=== PATIENT | female | born 1990 | race Caucasian/White ===

== ENCOUNTER 2017-01-17 19:28 | Emergency (ER) | payer MEDICAID ==
[~2017-01-17] VITALS: Ht 162.6 cm; Wt 62.5 kg
[2017-01-17 19:30] VITALS: Ht 162.6 cm; Wt 62.5 kg
[2017-01-17] MEDS ORDERED: METOCLOPRAMIDE 10 MG INJ IV STA (19:58)
[2017-01-17] MEDS ORDERED: SOD CHLORIDE 0.9% 1,000 ML IV STA (19:58)
[2017-01-17] MEDS ORDERED: METOCLOPRAMIDE 10 MG INJ IV ONE (20:00)
[2017-01-17] MEDS ORDERED: DIPHENHYDRAMINE 50 MG INJ IV ONE (20:00)
[2017-01-17 20:08] LABS: URINE BLOOD (Dip) POC Trace-intact (NEGATIVE)
[2017-01-17] MEDS ORDERED: METO10TA92 PO (20:18)
--- NOTE | 2017-01-17 20:25 | ERD ---
ER Documentation Chief Complaint Date/Time DATE: 01/17/17 TIME: 20:19 Chief Complaint 6 weeks ,N/V x 1 week HPI She is a 26-year-old female, approximately 6 weeks , , presents emergency department with nausea and vomiting 1 week. Patient reports 4-5 episodes of nonbloody nonbilious vomiting throughout the day. Patient reports drinking water however she states she has a decreased appetite. Patient states for the last 2 days she has been unable to eat secondary to nausea. Patient denies any fevers, chills, abdominal pain, pelvic pain or vaginal bleeding. Denies any chest pain, shortness of breath or loss of consciousness. Patient has not seen an POWER CRANE OPERATOR yet. Patient states her last menstrual period was approximately 2 months ago however she does not recall the exact timing. ROS All systems reviewed and are negative except as per history of present illness. Medications Home Meds Active Scripts Metoclopramide* (Reglan*) 10 Mg Tablet, 10 MG PO Q6 Y for NAUSEA AND/OR VOMITING , #12 TAB Prov:IVAN LION PA-C 01/17/17 Allergies Allergies: Coded Allergies: No Known Allergy (Unverified , 01/17/17) PMhx/Soc History of Surgery: No Anesthesia Reaction: No Hx Neurological Disorder: No Hx Respiratory Disorders: No Hx Cardiac Disorders: No Hx Psychiatric Problems: No Hx Miscellaneous Medical Probl: No Hx Alcohol Use: No Hx Substance Use: No Hx Tobacco Use: No Physical Exam Vitals Vital Signs Date Time Temp Pulse Resp B/P Pulse Ox O2 Delivery O2 Flow Rate FiO2 01/17/17 19:30 97.8 80 20 119/80 99 Physical Exam GENERAL: Well-developed, well-nourished female. Appears in no acute distress. Speaking in full sentences. HEAD: Normocephalic, atraumatic. EYES: Pupils are equally reactive bilaterally. EOMs grossly intact. No conjunctival erythema. ENT: Moist mucous membranes. No uvula deviation. No kissing tonsils. NECK: Supple. No meningismus. Normal range of motion of the neck. LUNG: Clear to auscultation bilaterally. No rhonchi, wheezing, rales or coarse breath sounds. HEART: Regular rate and rhythm. No murmurs, rubs or gallops. ABDOMEN: No scars, ecchymosis or rashes noted. Soft, nontender, and nondistended. Positive bowel sounds in all four quadrants. No rebound tenderness , no guarding. (-) McBurney's point tenderness. No CVA tenderness. BACK: No midline tenderness. EXTREMITIES: Equal pulses bilaterally. No peripheral clubbing, cyanosis or edema. No unilateral leg swelling. NEUROLOGIC: Alert and oriented. Moving all four extremities without any difficulty. Normal speech. Steady gait. SKIN: Normal color. Warm and dry. No rashes or lesions. Result Diagram: 01/17/17200901/17/172009 Results 24 hrs Laboratory Tests Test 01/17/17 20:10 White Blood Count 11.010^3/ul Red Blood Count 4.5110^6/ul Hemoglobin 14.1g/dl Hematocrit 41.0% Mean Corpuscular Volume 90.9fl Mean Corpuscular Hemoglobin 31.3pg Mean Corpuscular Hemoglobin Concent 34.4g/dl Red Cell Distribution Width 11.6% Platelet Count 42020^3/UL Mean Platelet Volume 12.0fl Neutrophils % 77.8% Lymphocytes % 14.5% Monocytes % 6.7% Eosinophils % 0.3% Basophils % 0.2% Nucleated Red Blood Cells % 0.0/100WBC Neutrophils # 8.610^3/ul Lymphocytes # 1.610^3/ul Monocytes # 0.710^3/ul Eosinophils # 0.010^3/ul Basophils # 0.010^3/ul Nucleated Red Blood Cells # 0.010^3/ul Bedside Urine pH (LAB) 6.0 Bedside Urine Protein (LAB) 1+ Bedside Urine Glucose (UA) Negative Bedside Urine Ketones (LAB) 4+ Bedside Urine Blood Trace-intact Bedside Urine Nitrite (LAB) Negative Bedside Urine Leukocyte Esterase (L Negative Sodium Level 137mmol/L Potassium Level 3.4mmol/L Chloride Level 97mmol/L Carbon Dioxide Level 23mmol/L Anion Gap 20 Blood Urea Nitrogen 6mg/dl Creatinine 0.55mg/dl Glucose Level 94mg/dl Calcium Level 10.1mg/dl Total Bilirubin 0.4mg/dl Direct Bilirubin 0.00mg/dl Indirect Bilirubin 0.4mg/dl Aspartate Amino Transf (AST/SGOT) 18IU/L Alanine Aminotransferase (ALT/SGPT) 22IU/L Alkaline Phosphatase 57IU/L Total Protein 8.6g/dl Albumin 5.0g/dl Globulin 3.60g/dl Albumin/Globulin Ratio 1.38 Lipase 76U/L Beta HCG, Quantitative 33897.0mIU/ml Current Medications Medications (Trade) Dose Ordered Sig/Felisha Route PRN Reason Start Time Stop Time Status Last Admin Dose Admin Sodium Chloride (NS) 1,000 ml @ 1,000 mls/hr Q1H STAT IV 01/17/17 19:58 01/17/17 20:57 DC 01/17/17 20:17 Metoclopramide HCl (Reglan) 10 mg ONCE STAT IV 01/17/17 19:58 01/17/17 20:01 DC 01/17/17 20:17 Diphenhydramine HCl (Benadryl) 25 mg ONCE ONCE IV 01/17/17 20:00 01/17/17 20:01 DC 01/17/17 20:17 Metoclopramide HCl (Reglan) 10 mg ONCE ONCE IV 01/17/17 20:00 01/17/17 20:01 DC Procedures/MDM ED COURSE: The patient was stable throughout ED course. I kept the patient and/or family informed of laboratory and diagnostic imaging results throughout the ED course. DIAGNOSTIC IMAGING: Read by radiologist. DIAGNOSTIC IMAGING REPORT Patient: FELY WILDER : 1990 Age: 26 Sex: F MR #: [id number] DOS: 01/17/17 0000 Ordering MD: IVAN LION PA-C Location: [facility]TE Room/Bed: PROCEDURE: US OB. CLINICAL INDICATION: Pain. Vomiting.. TECHNIQUE: Multiple sonographic images of the pelvis were obtained. Transabdominal and transvaginal views of the pelvis are available for review. The images were reviewed on a PACS workstation. COMPARISON: No prior studies are available for comparison. FINDINGS: A single live intrauterine is identified. heart rate is 127 beats per minute. The crown-rump length is 9.4 mm which corresponds to 7 weeks 0 days gestational age by ultrasound criteria. Estimated date of delivery is . A 5.4 mm subchorionic hemorrhage is identified. There is a 1.3 cm right ovarian simple cyst. The ovaries are otherwise unremarkable with vascular flow.. There is no adnexal mass or free fluid. IMPRESSION: 1. Single live intrauterine gestation of approximately 7 weeks 0 days. 2. Small subchorionic hemorrhage. 3. Right ovarian cyst. RPTAT: HMVK .Wei Sanchez MD, Date Time Electronically viewed and signed by .Wei Sanchez MD, MD on 01/17/2017 22:04 .K/ CC: IVAN LION PA-C MEDICATIONS GIVEN: IV fluids, Benadryl, Reglan Patient tolerated medication well with no adverse reactions. MEDICAL DECISION MAKING: Patient is a 26-year-old female who presents presents to the emergency department with nausea and vomiting x 1 week. Vital signs were reviewed. Patient is afebrile. Patient was not hypoxic. Patient was hemodynamically stable. CBC showed no evidence of systemic infection or severe anemia. CMP showed no evidence of electrolyte abnormalities, severe acidosis, alkalosis, renal failure , or liver disease. Lipase showed no evidence of acute pancreatitis[place] [address]. Urine dip is negative for acute infection. Patient was noted to have ketones in her urine likely due to vomiting for the last week. Pelvic ultrasound showed single live intrauterine gestation of approximately 7 weeks 0 days. Small subchorionic hemorrhage noted. Right ovarian cyst noted with normal blood flow. Patient was given IV fluids, Benadryl, Reglan here in the emergency department. Patient reported feeling better after receiving IV fluids. No additional episodes of vomiting were noted throughout ED course. At this time, the patient's presentation is most consistent with associated nausea and vomiting. Low suspicion for hyperemesis gravidarum, gastroenteritis, gallbladder disease, pancreatitis, appendicitis, daily, UTI, pyelonephritis, PUD, HELLP syndrome. Pelvic ultrasound showed intrauterine and subchorionic hemorrhage.. Low suspicion for ectopic , anembryonic , spontaneous , complete , urine torsion. PRESCRIPTION: Reglan DISCHARGE: At this time, patient is stable for discharge and outpatient management. I have instructed the patient to follow-up with his/her primary care physician in 1-2 days. She was provided with referral information for an POWER CRANE OPERATOR. Patient will need to follow-up with an POWER CRANE OPERATOR in the next 1-2 days patient was advised to return emergency department for any severe pain or vaginal bleeding per. I have instructed the patient to promptly return to the ER for any new or worsening symptoms including increased pain, fever, nausea, vomiting, weakness or LOC. The patient and/or family expressed understanding of and agreement with this plan. All questions were answered. Home care instructions were provided. Departure Diagnosis: Primary Impression: Vomiting during Additional Impression: Subchorionic hemorrhage Condition: Stable Patient Instructions: Vomiting (6Y-Adult), , Established, Normal Symptoms Referrals: COMMUNITY CLINICS YOU HAVE RECEIVED A MEDICAL SCREENING EXAM AND THE RESULTS INDICATE THAT YOU DO NOT HAVE A CONDITION THAT REQUIRES URGENT TREATMENT IN THE EMERGENCY DEPARTMENT. FURTHER EVALUATION AND TREATMENT OF YOUR CONDITION CAN WAIT UNTIL YOU ARE SEEN IN YOUR DOCTORS OFFICE WITHIN THE NEXT 1-2 DAYS. IT IS YOUR RESPONSIBILITY TO MAKE AN APPOINTMENT FOR FOLOW-UP CARE. IF YOU HAVE A PRIMARY DOCTOR --you should call your primary doctor and schedule an appointment IF YOU DO NOT HAVE A PRIMARY DOCTOR YOU CAN CALL OUR PHYSICIAN REFERRAL HOTLINE AT IF YOU CAN NOT AFFORD TO SEE A PHYSICIAN YOU CAN CHOSE FROM THE FOLLOWING [facility] [address] [facility]. [facility] [address] [facility]. [facility] [address] [facility]. [facility] [address] [facility] [address] [facility]. [facility]. [address] [facility]. [facility] YOU HAVE RECEIVED A MEDICAL SCREENING EXAM AND THE RESULTS INDICATE THAT YOU DO NOT HAVE A CONDITION THAT REQUIRES URGENT TREATMENT IN THE EMERGENCY DEPARTMENT. FURTHER EVALUATION AND TREATMENT OF YOUR CONDITION CAN WAIT UNTIL YOU ARE SEEN IN YOUR DOCTORS OFFICE WITHIN THE NEXT 1-2 DAYS. IT IS YOUR RESPONSIBILITY TO MAKE AN APPOINTMENT FOR FOLOW-UP CARE. IF YOU HAVE A PRIMARY DOCTOR --you should call your primary doctor and schedule and appointment IF YOU DO NOT HAVE A PRIMARY DOCTOR YOU CAN CALL OUR PHYSICIAN REFERRAL HOTLINE AT . IF YOU CAN NOT AFFORD TO SEE A PHYSICIAN YOU CAN CHOSE FROM THE FOLLOWING [facility] INSTITUTIONS: [facility] [address] [place] [address] [facility] [address] [place] [address] [facility] [address] [place] [address] POWER CRANE [employer]PER[place] [address] [facility] [address] [place] [address] OFFICE FAX , [facility] [address] [place], [place] [id number] [address] [facility] [address] [place] [address] DR RUIZ [facility] [address] [facility], [facility] [address] [address] [address] [facility] [facility] [address] [place] [address] [facility] [address] [place] [address] [address] [facility] [address] - BRENDA SERNA [address], [facility] [address] [address] [address] [facility]. [address], [facility] [address] [address] [address] [place], [place] [id number] Additional Instructions: Call your primary care doctor TOMORROW for an appointment during the next 1-2 days.See the doctor sooner or return here if your condition worsens before your appointment time. Patient will need to follow-up with an POWER CRANE OPERATOR in the next 1-2 days. See referral list for local POWER CRANE OPERATOR's. IVAN LION PA-C January 17, 2017 20:25
[2017-01-17 20:46] LABS: ADD SCAN DIFF NO
[2017-01-17 20:47] LABS: BASOPHILS % 0.2 % (0.0-2.0); EOSINOPHILS % 0.3 % (0.0-7.0); HEMOGLOBIN 14.1 g/dl (12.0-16.0); LYMPHOCYTES # 1.6 10^3/ul (0.8-2.9); LYMPHOCYTES % 14.5 % (15.0-51.0); MEAN CORPUSCULAR HEMOGLOBIN 31.3 pg (29.0-33.0); MEAN CORPUSCULAR HGB CONC 34.4 g/dl (32.0-37.0); MEAN CORPUSCULAR VOLUME 90.9 fl (82.0-101.0); MONOCYTE # 0.7 10^3/ul (0.3-0.9); MONOCYTES % 6.7 % (0.0-11.0); NEUTROPHIL # 8.6 10^3/ul (1.6-7.5); NEUTROPHILS % 77.8 % (39.0-77.0); PLATELET COUNT 254 10^3/UL (140-415); RED BLOOD COUNT 4.51 10^6/ul (4.20-5.40); RED CELL DISTRIBUTION WIDTH 11.6 % (11.5-14.5)
[2017-01-17 21:05] LABS: POTASSIUM 3.4 mmol/L (3.5-5.1)
[2017-01-17 21:07] LABS: ALBUMIN/GLOBULIN RATIO 1.38; BILIRUBIN,INDIRECT 0.4 mg/dl (0-1.1); BILIRUBIN,TOTAL 0.4 mg/dl (0.2-1.3); CREATININE 0.55 mg/dl (0.44-1.00); TOTAL PROTEIN 8.6 g/dl (6.1-8.1)
[2017-01-17 21:08] LABS: CALCIUM 10.1 mg/dl (8.4-10.2)
--- NOTE | 2017-01-17 22:04 | RADRPT ---
PROCEDURE: US OB. CLINICAL INDICATION: Pain. Vomiting.. TECHNIQUE: Multiple sonographic images of the pelvis were obtained. Transabdominal and transvagin al views of the pelvis are available for review. The images were reviewed on a PACS workstation. COMPARISON: No prior studies are available for comparison. FINDINGS: A single live intrauterine is identified. heart rate is 127 beats per minute. The cr own-rump length is 9.4 mm which corresponds to 7 weeks 0 days gestational age by ultrasound criteria . Estimated date of delivery is 09/05/2017. A 5.4 mm subchorionic hemorrhage is identified. There is a 1.3 cm right ovarian simple cyst. The ovaries are otherwise unremarkable with vascular flow.. There is no adnexal mass or free fluid. IMPRESSION: 1. Single live intrauterine gestation of approximately 7 weeks 0 days. 2. Small subchorionic hemorrhage. 3. Right ovarian cyst. RPTAT: HMVK .Wei Sanchez MD, Date Time Electronically viewed and signed by .Wei Sanchez MD, on 01/17/2017 22:04 .K/
== END 2017-01-17 22:26 | disposition home or self-care (01) ==
LOC: FTE 19:28
DX: O21.9 Vomiting of pregnancy, unspecified (principal); O36.8910 Maternal care for other specified fetal problems, first trimester, not applicable or unspecified; Z3A.01 Less than 8 weeks gestation of pregnancy
CPT/HCPCS: 36415; 76801; 76817; 80053; 81003; 83690; 84702; 85025; 96374; 96375; J1200; J2765; J7030; Z7502

== ENCOUNTER 2017-01-18 21:10 | Emergency (ER) | payer MEDICAID ==
[~2017-01-18] VITALS: Ht 167.6 cm; Wt 64.0 kg
[~2017-01-18 21:10] MED LIST: METO10TA92 PO
[2017-01-18 21:17] VITALS: Ht 167.6 cm; Wt 64.0 kg
[2017-01-18 23:32] LABS: ADD SCAN DIFF NO
[2017-01-18 23:34] LABS: BASOPHILS % 0.2 % (0.0-2.0); EOSINOPHILS % 0.3 % (0.0-7.0); HEMATOCRIT 38.6 % (37.0-47.0); HEMOGLOBIN 13.4 g/dl (12.0-16.0); LYMPHOCYTES # 1.6 10^3/ul (0.8-2.9); LYMPHOCYTES % 17.2 % (15.0-51.0); MEAN CORPUSCULAR HEMOGLOBIN 31.2 pg (29.0-33.0); MEAN CORPUSCULAR HGB CONC 34.7 g/dl (32.0-37.0); MEAN CORPUSCULAR VOLUME 89.8 fl (82.0-101.0); MONOCYTE # 0.6 10^3/ul (0.3-0.9); MONOCYTES % 6.6 % (0.0-11.0); NEUTROPHIL # 6.9 10^3/ul (1.6-7.5); NEUTROPHILS % 75.4 % (39.0-77.0); PLATELET COUNT 240 10^3/UL (140-415); RED CELL DISTRIBUTION WIDTH 11.6 % (11.5-14.5); WHITE BLOOD COUNT 9.2 10^3/ul (4.8-10.8)
[2017-01-18 23:54] LABS: ADD UMIC YES; URINE BILIRUBIN (Dip) NEGATIVE (NEGATIVE); URINE BLOOD (Dip) 3+ (NEGATIVE); URINE COLOR LT. YELLOW (YELLOW); URINE GLUCOSE (Dip) NEGATIVE (NEGATIVE); URINE KETONES (Dip) 40 (NEGATIVE); URINE LEUKOCYTE ESTERASE (Dip) TRACE (NEGATIVE); URINE NITRITE (Dip) NEGATIVE (NEGATIVE); URINE TOTAL PROTEIN (Dip) NEGATIVE (NEGATIVE); URINE UROBILINOGEN (Dip) 0.2 E.U./dL (0.1-1.0)
--- NOTE | 2017-01-19 00:08 | RADRPT ---
PROCEDURE: ULTRASOUND OBSTETRICAL CLINICAL INDICATION: 26-year-old female with vaginal bleeding. TECHNIQUE: Multiple sonographic images of the pelvis were obtained. The images were reviewed on a PACS workstation. COMPARISON: None. FINDINGS: There is trace fluid within the endocervical canal. There is a single intrauterine gestation. There is a small subchorionic hemorrhage measuring approximately 7 x 3 mm. The mean sac diameter is 2.20 cm. There is a pole present with a crown-rump length of 1.02 cm. This yields an estimated ges tational age of 7 weeks and 1 day. The estimated date of delivery is September 05, 2017. Cardiac acti vity is present at 131 beats per minute. There is no evidence for free fluid. The right ovary has a normal echotexture and measures 3.1 x 2.6 x 2.3 cm. There is a right is corpus luteal cyst measurin g 2.2 x 1.8 x 2.0 cm. The left ovary has a normal echotexture and measures 3.0 x 1.3 x 1.9 cm. There is normal flow to the ovaries bilaterally. No adnexal masses are noted. IMPRESSION: 1. Single viable intrauterine gestation of approximately 7 weeks 1 day with small subchorionic hemo rrhage. The estimated date of delivery is September 05, 2017. 2. Trace fluid within the endocervical canal. 3. Right corpus luteal cyst. .Den Abdalla MD, MD Date Time Electronically viewed and signed by .Den Abdalla MD, MD on 01/19/2017 00:07 .M/
[2017-01-19 00:09] LABS: BACTERIA,URINE FEW; SQUAMOUS EPITHELIAL CELL,UR FEW
[2017-01-19] MEDS ORDERED: CEPH-443 PO (01:18)
[2017-01-19 01:31] VITALS: BP 119/64; PULSE 65; RESP 16; TEMP 98.3
--- NOTE | 2017-01-19 19:06 | ERD ---
ER Documentation Chief Complaint Date/Time DATE: 01/19/17 TIME: 18:57 Chief Complaint vaginal bleeding x 15 minutes, states 7 weeks HPI This is a 26 year old female who presents to the ED for vaginal bleed after having a sexual intercourse with her male partner today. Pt is and is 7 weeks . Last LMP is 12/08/16. Pt states that she noticed dark red blood after wiping her perianal area. Pt states that the vaginal bleed is lesser upon arrival to ED. No blood clots or soft tissue expulsion reported. Pt was seen in the ED yesterday for nausea in which she was prescribed with reglan. Denies any abdominal pain, fever, shortness of breath, nausea, dysuria or diarrhea. ROS All systems reviewed and are negative except as per history of present illness. Medications Home Meds Active Scripts Cephalexin* (Keflex*) 500 Mg Capsule, 500 MG PO BID for 7 Days, CAP Prov:OMAR FIGUEROA 01/19/17 Metoclopramide* (Reglan*) 10 Mg Tablet, 10 MG PO Q6 Y for NAUSEA AND/OR VOMITING , #12 TAB Prov:IVAN LION PA-C 01/17/17 Allergies Allergies: Coded Allergies: No Known Allergy (Unverified , 01/18/17) PMhx/Soc History of Surgery: No Anesthesia Reaction: No Hx Neurological Disorder: No Hx Respiratory Disorders: No Hx Cardiac Disorders: No Hx Psychiatric Problems: No Hx Miscellaneous Medical Probl: No Hx Alcohol Use: No Hx Substance Use: No Hx Tobacco Use: No Smoking Status: Never smoker Physical Exam Vitals Vital Signs Date Time Temp Pulse Resp B/P Pulse Ox O2 Delivery O2 Flow Rate FiO2 01/19/17 01:31 98.3 65 16 119/64 100 Room Air 01/18/17 21:17 98.0 79 20 110/61 98 Physical Exam Physical Exam CONST: Well-developed, well-nourished, in no acute distress. Nontoxic in appearance. HEENT: Atraumatic. Normal conjunctiva. EOM intact. TM intact. External ear is normal. Clear oropharynx without erythema. No uvular deviation. Moist mucous membranes. Supple neck. No meningismus. No submandibular induration. RESP: Clear to auscultation bilaterally. No wheezing. CARDIO: Regular rate and rhythm, no murmurs. ABD: Soft, non tender, non distended. Normal bowel sounds. No McBurney' s point tenderness. No guarding or rigidity. No peritoneal signs. SKIN: No petechiae or rashes. BACK: No midline or flank tenderness. EXT: No cyanosis or edema. Distal pulses equal and bilateral. NEURO: Awake and alert, appropriate for age. 5/5 strength in all extremities. Normal speech. Steady gait. Result Diagram: 01/18/17 2255 Results 24 hrs Laboratory Tests Test 01/18/17 22:50 01/18/17 22:55 Urine Color LT. YELLOW Urine Clarity SL HAZY Urine pH 6.0 Urine Specific [place] <=1.005 Urine Ketones 40 Urine Nitrite NEGATIVE Urine Bilirubin NEGATIVE Urine Urobilinogen 0.2 E.U./dL Urine Leukocyte Esterase TRACE Urine Microscopic RBC 2-5/HPF Urine Microscopic WBC 0-2/HPF Urine Squamous Epithelial Cells FEW Urine Bacteria FEW Urine Hemoglobin 3+ Urine Glucose NEGATIVE% Urine Total Protein NEGATIVE White Blood Count 9.210^3/ul Red Blood Count 4.3010^6/ul Hemoglobin 13.4g/dl Hematocrit 38.6% Mean Corpuscular Volume 89.8fl Mean Corpuscular Hemoglobin 31.2pg Mean Corpuscular Hemoglobin Concent 34.7g/dl Red Cell Distribution Width 11.6% Platelet Count 61949^3/UL Mean Platelet Volume 11.0fl Neutrophils % 75.4% Lymphocytes % 17.2% Monocytes % 6.6% Eosinophils % 0.3% Basophils % 0.2% Nucleated Red Blood Cells % 0.0/100WBC Neutrophils # 6.910^3/ul Lymphocytes # 1.610^3/ul Monocytes # 0.610^3/ul Eosinophils # 0.010^3/ul Basophils # 0.010^3/ul Nucleated Red Blood Cells # 0.010^3/ul Beta HCG, Quantitative 36175.0mIU/ml ROCEDURE: ULTRASOUND OBSTETRICAL CLINICAL INDICATION: 26-year-old female with vaginal bleeding. TECHNIQUE: Multiple sonographic images of the pelvis were obtained. The images were reviewed on a PACS workstation. COMPARISON: None. FINDINGS: There is trace fluid within the endocervical canal. There is a single intrauterine gestation. There is a small subchorionic hemorrhage measuring approximately 7 x 3 mm. The mean sac diameter is 2.20 cm. There is a pole present with a crown-rump length of 1.02 cm. This yields an estimated gestational age of 7 weeks and 1 day. The estimated date of delivery is September 05, 2017. Cardiac activity is present at 131 beats per minute. There is no evidence for free fluid. The right ovary has a normal echotexture and measures 3.1 x 2.6 x 2.3 cm. There is a right is corpus luteal cyst measuring 2.2 x 1.8 x 2.0 cm. The left ovary has a normal echotexture and measures 3.0 x 1.3 x 1.9 cm. There is normal flow to the ovaries bilaterally. No adnexal masses are noted. IMPRESSION: 1. Single viable intrauterine gestation of approximately 7 weeks 1 day with small subchorionic hemorrhage. The estimated date of delivery is September 05, 2017. 2. Trace fluid within the endocervical canal. 3. Right corpus luteal cyst. .Den Abdalla MD, MD Date Time Electronically viewed and signed by .Den Abdalla MD, on 01/19/2017 00:07 Procedures/[facility] EMERGENCY DEPARTMENT COURSE/MEDICAL DECISION MAKING This is a 26 year old female who comes to the emergency room secondary to complaints of vaginal bleed today after having a sexual intercourse with her male partner. Pt is afebrile and appears nontoxic. Denies abdominal pain. CBC, HCG, UA, Type and RH were ordered. Hgb/Hct result is [place] [address]. Urinalysis shows trace leukocyte and few bacteria. U/S OB was done and was interpreted by a radiologist. Results shows Single viable intrauterine gestation of approximately 7 weeks 1 day with small subchorionic hemorrhage. I believe the bleeding is caused by the subchorionic hemorrhage. Follow up is recommended with her SUPERINTENDENT OPERATING. Pt also needs an antibiotic for her UTI. My primary diagnosis is vaginal bleed. Secondary diagnosis is UTI. Differential diagnoses considered but not limited to spontaneous , ectopic , normal , ovarian cyst. Pt is hemodynamically stable upon reassessment. There are no new complaints during the ED course The patient was discharged for outpatient management with a prescription for keflex. The patient was advised to followup with her SUPERINTENDENT OPERATING and PMD in 1-2 days and to return to the Emergency Department if there are any new or worsening symptoms. The patient understood and agreed with the diagnosis, treatment and plan. Patient is stable for discharge at this time. Departure Diagnosis: Primary Impression: Vaginal bleeding Additional Impression: UTI (urinary tract infection) Urinary tract infection type: site unspecified Hematuria presence: without hematuria Qualified Code: N39.0 - Urinary tract infection without hematuria, site unspecified Condition: Stable Patient Instructions: Understanding Urinary Tract Infections (UTIs) Referrals: COMMUNITY CLINICS YOU HAVE RECEIVED A MEDICAL SCREENING EXAM AND THE RESULTS INDICATE THAT YOU DO NOT HAVE A CONDITION THAT REQUIRES URGENT TREATMENT IN THE EMERGENCY DEPARTMENT. FURTHER EVALUATION AND TREATMENT OF YOUR CONDITION CAN WAIT UNTIL YOU ARE SEEN IN YOUR DOCTORS OFFICE WITHIN THE NEXT 1-2 DAYS. IT IS YOUR RESPONSIBILITY TO MAKE AN APPOINTMENT FOR FOLOW-UP CARE. IF YOU HAVE A PRIMARY DOCTOR --you should call your primary doctor and schedule an appointment IF YOU DO NOT HAVE A PRIMARY DOCTOR YOU CAN CALL OUR PHYSICIAN REFERRAL HOTLINE AT IF YOU CAN NOT AFFORD TO SEE A PHYSICIAN YOU CAN CHOSE FROM THE FOLLOWING [facility] CL[facility]ICS [facility] [address] [facility]. [facility] [address] [facility]. [facility] [address] [facility] [address] [facility] [address] [facility]. [facility]. [address] SUPERINTENDENT [place] [address] [facility] [address] [place] [address] OFFICE FAX [facility] [address] [place] [address] [address] [facility] [id number] [place] [address] [place] [address] [address] RUIZ, [facility] [address], [address], [facility] [address] [address] GALLEGOS, [facility] [address] [facility], [place] [address] [facility] [address] [place] [address] [address] [facility], [facility] [address] - [address] SALVADOR, BRENDA [address], [facility] [address] [address] PARTIDA, IVELISSE [address] [facility]. [address], [facility] [address] [address] CASTLE, [facility] [address] [place], [place] [id number] Additional Instructions: Follow-up with your SUPERINTENDENT OPERATING in 2-3 days. Call your primary care doctor tomorrow for an appointment during the next 1-2 days. Return to the emergency department immediately should you have any new or worsening symptoms. Take all medications as directed. OMAR FIGUEROA January 19, 2017 19:06
== END 2017-01-19 01:32 | disposition home or self-care (01) ==
LOC: FTE 21:10
DX: O20.9 Hemorrhage in early pregnancy, unspecified (principal); O23.41 Unspecified infection of urinary tract in pregnancy, first trimester; Z3A.01 Less than 8 weeks gestation of pregnancy
CPT/HCPCS: 76801; 76817; 81001; 84702; 85025; 86900; 86901; Z7502; 81003